=== PATIENT | female | born 2000 | race African-American/Black ===

== ENCOUNTER 2023-11-24 16:45 | Emergency (ER) | payer OTHER ==
[2023-11-24] MEDS ORDERED: Ondansetron ODT 4 MG TAB ONE (17:56)
[2023-11-24] MEDS ORDERED: Acetaminophen 500 MG TAB ONE (17:56)
[2023-11-24 18:16] LABS: SARS-CoV-2 NAA Rapid Test Not Detected (NotDetected)
== END 2023-11-24 19:05 | disposition home or self-care (01) ==
LOC: CSHERS 16:45
DX: J10.1 Influenza due to other identified influenza virus with other respiratory manifestations (principal); F17.210 Nicotine dependence, cigarettes, uncomplicated; Z55.6 Problems related to health literacy; Z75.3 Unavailability and inaccessibility of health-care facilities
CPT/HCPCS: 87081; 87430; 99284; Q0162